=== PATIENT | male | born 1945 | race Caucasian/White ===

== ENCOUNTER 2018-08-27 10:00 | Outpatient (RCR) | payer OTHER, MEDICARE, SELFPAY | END 2018-08-27 12:00 | disposition home or self-care (01) | LOC: PT.CARL 10:00 | PROVIDERS: Visit Provider Physical Medicine & Rehabilitation | DX: M25.551 Pain in right hip (principal) | CPT/HCPCS: 97012; 97014; 97110; 97140; 97163; G0283 ==

== ENCOUNTER → 2020-08-02 16:23 | Outpatient (CLI) | payer MEDICARE, OTHER, SELFPAY | PROVIDERS: PCP Family Medicine; Visit Provider Family Medicine | DX: U07.1 COVID-19; Z20.828 Contact with and (suspected) exposure to other viral communicable diseases | CPT/HCPCS: U0003 ==

== ENCOUNTER 2021-12-25 18:03 | Emergency (ER) | payer MEDICARE, OTHER, SELFPAY ==
[2021-12-25 18:15] VITALS: BP 154/91; PULSE 89; RESP 19; TEMP 36.8; O2SAT 97; BMI 30.2
--- NOTE | 2021-12-25 18:35 | HMH.EDUTC ---
[facility] Disposition Clinical Impression: Herpes stomatitis Disposition: Home, Self-Care Condition on Discharge: Good Instructions: Cold Sores, Valacyclovir Additional Instructions: A bland diet for few days is much better as it will not irritate while chewing and swallowing. Avoid eating hot and spicy food Drink enough water, milkshakes, banana, ice cream, frozen popsicle, mashed potatoes etc. Portal your teeth regularly with gentle brush to prevent bad breath. Rest and enough sleep are important for reducing pain and rapid healing of ulcer. To prevent recurrent attack, avoid acidic foods and foods that contain too much of arginine such as chocolates, nuts, chicken, pork, peanuts, etc. Eat foods that are high in lysine as it natural viral fighting properties. . Apply milk of magnesia over the mouth ulcer. It coats and numbs the ulcer and reduces pain while eating. Follow up with your Family Doctor or Dentist if no improvement or any worsening of symptoms Straight to ER if any life threatening symptoms Prescriptions: Magic Mouthwash [Magic Mouthwash;240mL Botttle] 5 ml PO QID #240 ml Transmission Status: Received by [facility] #[id number] Valacyclovir HCl [Valtrex] 2 gm PO BID 1 Days #4 tab Transmission Status: Received by [facility] #[id number] Referrals: Kerline Cooper [Primary Care Provider] - As needed Medical Decision Making - Daniel Inquiry Pt receiving controlled substance: No Daniel was queried for this patient: No Vital Signs: 12/25/21 18:15 12/25/21 19:10 Temperature 98.3 F 98.3 F Temperature Source Oral Pulse Rate 89 Pulse Rate [Right Brachial] 89 Respiratory Rate 19 19 Blood Pressure 154/91 H Blood Pressure [Right Arm] 154/91 H Blood Pressure Mean [Right Arm] 112 Blood Pressure Source [Right Arm] Automatic Cuff Blood Pressure Position [Right Arm] Sitting 02 Sat by Pulse Oximetry 97 Oxygen Delivery Method Room Air Orders (Tests/Meds): ED MEDICATIONS Discontinued Medications Generic Name Dose Route Start Last Admin Trade Name Freq PRN Reason Stop Dose Admin Methylprednisolone Sodium Succinate 125 mg 12/25/21 19:00 12/25/21 19:10 Methylprednisolone Sod Succ 125mg Vial IM 12/25/21 19:01 125 mg ONCE ONE Administration Medical Decision Narrative: medication discussed with pharmacy and dosed per pharmacy, Patient reports that he is a diabetic but well controlled [facility] [place] HPI - General Stated complaint: blisters in mouth Time Seen by Provider: 12/25/21 18:35 Mode of Arrival: Ambulatory Source of Information: Patient Limitations: No Limitations Description of Symptoms (Recalled from Triage Doc. by RN): PATIENT C/O BLISTERS TO LIPS, TONGUE, AND INSIDE OF CHEEKS SINCE YESTERDAY HEENT Symptoms (Recalled from RN notes): Yes Resp Symptoms (Recalled from RN notes): No Skin Symptoms (Recalled from RN notes): No MS Symptoms (Recalled from RN notes): No Functional Status (Recalled from RN notes): WNL - History of Present Illness Provider Complaint: Patient states that he changed his tooth brush and yesterday he woke up with blister like lesions all in his upper lip, mouth and side of tongue States that it hurts when he tries to move lips and feels sore and irritated States that he is still able to drink ok but hurts when he eats States that he wasnt sure what was going on so he came in to get checked - Related Data Previous Rx's Medication Instructions Recorded Magic Mouthwash [Magic 5 ml PO QID #240 ml 12/25/21 Mouthwash;240mL Botttle] Valacyclovir HCl [Valtrex] 2 gm PO BID 1 Days #4 tab 12/25/21 Allergies Allergy/AdvReac Type Severity Reaction Status Date / Time No Known Allergies Allergy Verified 12/25/21 18:33 - Worker's Comp Is this a Worker's Comp case?: No [facility] History - Hepatitis A Screen Attestation statement:: This patient has been screened for Hepatitis A risk factors. I have reviewed the patient's past medical history:
[2021-12-25 19:10] VITALS: BP 154/91; PULSE 89; RESP 19; TEMP 36.8; O2SAT 97
== END 2021-12-25 19:25 | disposition home or self-care (01) ==
PROVIDERS: Emergency Provider Nurse Practitioner; PCP Family Medicine
DX: B00.2 Herpesviral gingivostomatitis and pharyngotonsillitis (principal)
CPT/HCPCS: 96372; 99212; G0463